=== PATIENT | female | born 2000 | race Caucasian/White ===

== ENCOUNTER 2018-02-04 01:22 | Emergency (ER) | payer OTHER ==
[2018-02-04 02:15] LABS: BHCG - Serum Negative (NEGATIVE); Pregs Control Background? CLEAR/WHITE (CLR/WHITE); Pregs Control Bar Appear? YES (CONTROL BAR)
[2018-02-04 02:21] LABS: Anion Gap 15 mmol/L (10-20); BUN (Urea Nitrogen) 20 mg/dL (8.4-21.0); Calc. Creatinine Clearance 0 mL/min (70-130); Calcium 9.8 mg/dL (7.8-10.44); Carbon Dioxide 21 mmol/L (22-29); Chloride 109 mmol/L (98-107); Estimated GFR-MDRD 75; Glucose 98 mg/dL (70-105); Potassium 3.7 mmol/L (3.5-5.1); Sodium 141 mmol/L (136-145)
[2018-02-04 02:54] LABS: Bilirubin Negative (Negative); Blood, Urine Negative (Negative); Clarity CLEAR (Clear); Glucose, Urine (Dipstick) Negative (Negative); Leukocyte Negative (Negative); Nitrite Negative (Negative); Protein, Urine (Dipstick) Trace mg/dL (Neg-Trace); Specific Gravity, Urine 1.027 (1.002-1.036)
== END 2018-02-04 03:17 | disposition home or self-care (01) ==
LOC: ERS 01:22
DX: E10.649 Type 1 diabetes mellitus with hypoglycemia without coma (principal); E03.9 Hypothyroidism, unspecified
CPT/HCPCS: 36415; 36416; 80048; 81003; 84703; 99284

== ENCOUNTER 2018-04-03 07:52 | Observation (INO) | payer OTHER ==
[2018-04-03 08:28] LABS: #Basophils 0.1 thou/uL (0.0-0.2); #Eosinphils 0.2 thou/uL (0.0-0.7); #Lymphocytes 3.2 thou/uL (1.20-3.40); #Monocytes 0.5 thou/uL (0.11-0.59); #Neutrophils 3.2 thou/uL (1.40-6.50); %Basophils 1.1 % (0.0-1.0); %Eosinophils 2.3 % (0.0-10.0); %Lymphocytes 44.4 % (28.0-48.0); %Monocytes 7.3 % (0.0-4.0); %Neutrophils 44.9 % (31.0-61.0); Hemoglobin 14.1 g/dL (12.0-16.0); Mean Corpuscular HGB CONC 34.9 g/dL (32.0-36.0); Mean Corpuscular Hemoglobin 31.4 pg (25.0-35.0); Mean Platelet Volume 6.5 fL (7.4-10.4); Platelet Count 289 thou/uL (130-400); RBC Distribution Width 11.3 % (11.5-14.5); Red Blood Cell (RBC) Count 4.48 mill/uL (4.00-5.20); White Blood Cell (WBC) Count 7.2 thou/uL (4.8-10.8)
[2018-04-03 08:49] LABS: ALT (SGPT) 15 U/L (8-55); AST (SGOT) 14 U/L (5-34); Albumin 3.9 g/dL (3.5-5.0); Alkaline Phosphatase 55 U/L (40-150); Anion Gap 9 mmol/L (10-20); BUN (Urea Nitrogen) 7 mg/dL (7.0-18.7); Bilirubin, Total 0.6 mg/dL (0.2-1.2); Calc. Creatinine Clearance 0 mL/min (70-130); Calcium 9.3 mg/dL (7.8-10.44); Carbon Dioxide 27 mmol/L (22-29); Chloride 106 mmol/L (98-107); Estimated GFR-MDRD 84; Globulin 3.1 g/dL (2.4-3.5); Lipase 20 U/L (8-78); Sodium 139 mmol/L (136-145)
[2018-04-03 08:57] LABS: Glucose 49 mg/dL (70-105); Potassium 2.8 mmol/L (3.5-5.1)
[2018-04-03] MEDS ORDERED: Haloperidol Lactate 5 MG/ML VIAL ONE (09:07)
--- NOTE | 2018-04-03 09:32 | ULT ---
GALLBLADDER ULTRASOUND: Date: 04/03/18 HISTORY: Right upper quadrant pain. FINDINGS: Real-time imaging of the right upper quadrant was performed. This shows a normal appearing gallbladde r. Common duct is 3.0 mm. Technologist reports a negative ultrasound Clark's sign. Visualized liver parenchyma shows no focal findings. The right kidney shows some very minimal right-sided hydronephros is. The pancreas is fairly well imaged and unremarkable. IMPRESSION: 1. No evidence of gallstones. 2. Some minimal dilatation to the right collecting system. Clinical correlation as to where the vinnie ent has any renal colic type symptoms, and if so, consideration for CT examination to evaluate for th e presence of a ureteral calculus would be recommended. POS: [facility]
[2018-04-03 09:36] LABS: Bilirubin Negative (Negative); Blood, Urine Negative (Negative); Clarity CLEAR (Clear); Glucose, Urine (Dipstick) Negative (Negative); Leukocyte Negative (Negative); Nitrite Negative (Negative); Protein, Urine (Dipstick) Negative (Neg-Trace); Specific Gravity, Urine 1.009 (1.002-1.036); Urobilinogen 0.2 mg/dL (0.2-1.0)
[2018-04-03 09:54] LABS: Pregnancy Test - Urine (BHCG) Negative (Negative)
[2018-04-03 09:56] LABS: Pregu Control Background? CLEAR/WHITE (CLR/WHITE); Pregu Control Bar Appear? YES (CONTROL BAR); Specific Gravity 1.009 (1.002-1.036)
[2018-04-03] MEDS ORDERED: Potassium Chloride 20 MEQ/100 ML PREMIX BAG ONE (10:44)
[2018-04-03] MEDS ORDERED: Metoclopramide HCl 10 MG/2 ML VIAL ONE (10:44)
[2018-04-03 11:21] LABS: Amphetamine Not Detected (NotDetected); Barbiturates Screen Not Detected (NotDetected); Benzodiazepine Screen Not Detected (NotDetected); Cocaine Metabolite Screen Not Detected (NotDetected); Medtox Control Line Valid? VALID (VALID); Medtox Reader # READER 1; Methadone Not Detected (NotDetected); Methamphetamine Not Detected (NotDetected); Opiate Screen Not Detected (NotDetected); Oxycodone Screen Not Detected (NotDetected); Phencyclidine (PCP) Not Detected (NotDetected); THC/Cannabinoid Screen Not Detected (NotDetected); Tricyclic Screen Not Detected (NotDetected)
[2018-04-03] MEDS ORDERED: Acetaminophen 325 MG TAB PO PRN (15:35)
[2018-04-03] MEDS ORDERED: Ondansetron PF 4 MG/2 ML Vial IVP PRN (15:35)
[2018-04-03] MEDS ORDERED: Dextrose 5% in Water 1,000 ML IV PRN (15:36)
[2018-04-03] MEDS ORDERED: Dextrose 50% Abboject 50 ML SYRINGE SLOW IVP PRN (15:36)
[2018-04-03] MEDS ORDERED: HumaLOG 300 UNITS/3 ML VIAL SC PRN (15:36)
[2018-04-03 16:17] LABS: Anion Gap 10 mmol/L (10-20); BUN (Urea Nitrogen) 5 mg/dL (7.0-18.7); Calc. Creatinine Clearance 0 mL/min (70-130); Calcium 8.5 mg/dL (7.8-10.44); Carbon Dioxide 22 mmol/L (22-29); Chloride 113 mmol/L (98-107); Estimated GFR-MDRD Greater than 90; Glucose 104 mg/dL (70-105); Potassium 3.8 mmol/L (3.5-5.1); Sodium 141 mmol/L (136-145)
[2018-04-03] MEDS: Lactated Ringer's 1,000 ML IV SCH (16:45)
[2018-04-03 17:02] VITALS: BMI 24.1
[2018-04-03] MEDS ORDERED: Promethazine HCl 25 MG/ML VIAL IVPB PRN (17:17)
[2018-04-03] MEDS ORDERED: Promethazine HCl 12.5 MG in Sodium Chloride 0.9% 50 ML IVPB PRN (17:59)
[2018-04-03] MEDS ORDERED: Insulin Glargine 5 UNITS in Pre-Filled Syringe 1 EACH SC SCH (21:00)
[2018-04-03] MEDS: Famotidine/PF 20 mg/2ml Vial SLOW IVP SCH (21:43)
--- NOTE | 2018-04-03 23:58 | HP ---
CHIEF COMPLAINT: Abdominal pain, nausea, and vomiting. HISTORY OF PRESENT ILLNESS: The patient is a very pleasant, 18-year-old female, who initially presented to the hospital with complaints of abdominal pain, nausea, and vomiting, which have been going on since Friday. The patient stated that on Friday she did not recall eating out anywhere, however, stared having watery diarrhea x2 bouts. The patient stated that on Friday she started having some nausea and had emesis a few times. The patient then stated that on Friday she started having intense abdominal cramping after she tried to eat a fried meal. The patient stated that she continued to have significant nausea, vomiting, abdominal pain, and diarrhea even on and felt very weak and tired. The patient also feels that she has been stressed recently due to her exams that are going to be coming up. The patient is in school for [employer]. She denies any ill contacts. She denies any travels. She denies eating out in restaurants. The patient denies any fever or chills, and denies using of any recreational drug use. The patient did go to her primary care doctor, I believe, on Friday, who said that she had possibly a viral illness and prescribed her some Zofran. PAST MEDICAL HISTORY: She has a history of type 1 diabetes when she was diagnosed with that at the age of 15. The patient has possible Magaly's. The patient's mother states that she has been going to her [employer] specialist frequently and is currently not on any thyroid medication; however, she states that at times her thyroid level is high and sometimes it is low. PAST SURGICAL HISTORY: She has no surgical history. SOCIAL HISTORY: She denies any alcohol, drugs, or smoking history. ALLERGIES: SHE HAS NO KNOWN ALLERGIES. CURRENT MEDICATIONS: The patient is on Humalog 1 unit per 10 g of carbohydrates, which is 8 units at night, and she is also on Tresiba 18 units at night. PHYSICAL EXAMINATION: VITAL SIGNS: Blood pressure of 141/99, temperature of 98.2, respirations 20, 100% on room air, 78 pulse. GENERAL: She is awake, alert, and oriented x3. Does not appear in distress. CV: S1 and S2 present. No murmurs, rubs, or gallops. LUNGS: Clear to auscultation. No rhonchi or wheezes noted. ABDOMEN: Soft. Bowel sounds are present x2. Mild pain upon palpation to right upper quadrant. EXTREMITIES: No edema. Pedal pulses are present x2. NEUROVASCULAR: There are no focal deficits noted. SKIN: Intact. No cuts, lesions, or bruises noted. LABORATORY DATA: Her laboratory results are the following. WBC of 7.2, hemoglobin of 14.1, hematocrit 40.4, platelets of 289. Chemistry; sodium of 139, potassium of 2.8, BUN of 7, creatinine of 0.86. Her initial sugar was 49 and repeat was 57. Serum test was negative. Urine was negative. She did have a right upper quadrant ultrasound, which indicated no evidence of gallstones, did have some mild dilation of the right collecting system, consider for possible ureteral calculus. ASSESSMENT AND PLAN: The patient is a very pleasant, 18-year-old female, who presents to the hospital with abdominal pain, nausea, vomiting, and diarrhea. 1. Acute gastroenteritis. This most likely could be viral, unlikely to be bacterial. The patient states that her diarrhea has decreased in intensity. We will check stool samples including leukocytes, Escherichia coli, and also Clostridium difficile. We will hold off on the antibiotics right now. The patient has been able to tolerate oral meals. We will continue that. Also, started some IV hydration. We will also check a TSH. 2. Hypoglycemia. The patient's blood sugars are low. The patient was able to tolerate her diet well. We will continue LR for now. Continue to monitor. We will also continue the patient's home medications; however, we will half it. 3. Diabetes type 1. We will continue the patient's home insulin and continue to monitor. 4. Deep venous thrombosis prophylaxis. We will put the patient on Lovenox. Job ID: [id number]
[2018-04-04] MEDS: Lactated Ringer's 1,000 ML IV SCH (03:07)
[2018-04-04 06:24] LABS: Anion Gap 9 mmol/L (10-20); BUN (Urea Nitrogen) 4 mg/dL (7.0-18.7); Calc. Creatinine Clearance 0 mL/min (70-130); Calcium 8.6 mg/dL (7.8-10.44); Carbon Dioxide 24 mmol/L (22-29); Chloride 112 mmol/L (98-107); Estimated GFR-MDRD Greater than 90; Glucose 103 mg/dL (70-105); Potassium 3.8 mmol/L (3.5-5.1); Sodium 141 mmol/L (136-145)
[2018-04-04 06:34] LABS: Band 1 % (5-11); Eosinophils 4 % (0-10); Hemoglobin 12.5 g/dL (12.0-16.0); Lymphocytes 66 % (28-48); MDiff Complete? YES; Mean Corpuscular HGB CONC 34.8 g/dL (32.0-36.0); Mean Corpuscular Hemoglobin 31.9 pg (25.0-35.0); Mean Corpuscular Volume 91.6 fL (78.0-98.0); Mean Platelet Volume 6.7 fL (7.4-10.4); Monocytes 3 % (0-4); Neutrophil 26 % (31-61); PLT Morphology Comment Appears Adequate; Platelet Count 241 thou/uL (130-400); RBC Distribution Width 11.4 % (11.5-14.5); White Blood Cell (WBC) Count 6.6 thou/uL (4.8-10.8)
--- NOTE | 2018-04-04 08:39 | ULT ---
BILATERAL RENAL ULTRASOUND: Date: 04/04/18 INDICATION: Concern for possible hydro. COMPARISON: Right upper quadrant ultrasound dated 04/03/18. FINDINGS: The right kidney measured 10.8 x 3.9 x 4.5 cm. The left kidney measured 10.3 x 4.6 x 4.3 cm. There is a prominent right renal pelvis without dilatation of the calices of the right kidney suspicious for an extrarenal pelvis. There are bilateral ureteral jets seen at the level of the bladder. No focal re nal lesion is evident. IMPRESSION: Right extrarenal pelvis. No hydronephrosis. POS: [facility]
[2018-04-04] MEDS ORDERED: Insulin Glargine 5 UNITS in Pre-Filled Syringe 1 EACH SC SCH (09:00)
[2018-04-04] MEDS ORDERED: Enoxaparin Sodium 40 MG/0.4 ML SYRINGE SC SCH (09:00)
[2018-04-04] MEDS: Famotidine/PF 20 mg/2ml Vial SLOW IVP SCH (09:39)
[2018-04-04 11:36] VITALS: BP 107/63; TEMP 98.4
--- NOTE | 2018-04-05 04:22 | DIS ---
DATE OF ADMISSION: 04/03/2018 DATE OF DISCHARGE: 04/04/2018 FINAL DIAGNOSES: 1. Acute gastroenteritis, resolved. 2. Type 2 diabetes mellitus. 3. Hypoglycemia. HOSPITAL COURSE: The patient is a 18-year-old female who initially presented to the hospital with complaints of abdominal pain, nausea and vomiting, which has been going on since Friday. She had some watery diarrhea and intermittent nausea and vomiting. She was concerned about becoming hypoglycemic since she is a diabetic type 1. She came to the emergency room. On further evaluation, she felt very weak and tired. She did not have any fever or chills. She denied any ill contacts. She denies any travels and she denied any eating out in the restaurants. The patient went to primary care doctor. She was given Zofran for possible viral gastroenteritis. While in the emergency room, her white count was 7.2, hemoglobin 14.1, hematocrit 40.4, and platelet count 289,000; potassium was 2.8, sodium 139, creatinine 0.86, glucose was 49 and repeated glucose level was 57. Serum test was negative. Urinalysis was negative. She had some right upper quadrant ultrasound done, which did not show any acute abnormalities. There was some suspicion that she has some right collecting system ureteral calculus because it showed some mild dilatation of this part of the urinary system. The patient got admitted to the hospital. She was given IV fluids. She had stool culture done, which came back negative for Clostridium difficile, toxins, and antigen. Stool culture showed just many normal enteric angeline. Campylobacter was negative. She got toxins test, it was negative. E coli O157:H7 was not performed and the stool lactoferrin came back positive. She is doing quite well. She did not have any bowel movement today. She tolerated food. There was no any nausea or vomiting. Her white count is normal. She is rehydrated. Her glycemia is ranging from 95 to 165, which is good, and her vitals are within normal limits. She is going home with recommendation to stay on diabetic diet, activities as tolerated. She has Zofran p.r.n. for nausea and vomiting in case those come back. I recommended her to go to her primary care physician in 1 week to do followup after the hospital discharge. Her medications at the time of discharge; Insulin aspart, Tresiba, and I believe contraceptive pills. This discharge is less than 30 minutes to finish and the patient was seen and examined before she was discharged. Job ID: [id number]
--- NOTE | 2018-04-11 12:05 | EKG ---
Test Reason : Blood Pressure : / mmHG Vent. Rate : 073 BPM Atrial Rate : 073 BPM P-R Int : 102 ms QRS Dur : 090 ms QT Int : 372 ms P-R-T Axes : 024 073 015 degrees QTc Int : 409 ms Sinus rhythm with short IL Otherwise normal ECG Confirmed by REHANA NAPIER DO ([id number]), magazine editor LEIGHTON BECKETT ([id number]) on 04/11/2018 12:05:12 PM Referred By: Confirmed By:REHANA NAPIER DO
== END 2018-04-04 14:05 | disposition home or self-care (01) ==
LOC: ERS 07:52 → ERHOLD 10:54 → ONC 16:12
PROVIDERS: ADMIT Internal Medicine; ATTEND Internal Medicine
DX: K52.9 Noninfective gastroenteritis and colitis, unspecified (principal); E10.649 Type 1 diabetes mellitus with hypoglycemia without coma
CPT/HCPCS: 36415; 36416; 76705; 76770; 80048; 80053; 80306; 81003; 81025; 83630; 83690; 84443; 85025; 87045; 87046; 87324; 87449; 87899; 93005; 96361; 96365; 96374; 96375; 96376; G0378; J1630; J1650; J2405; J2765; J3480; S0028